=== PATIENT | male | born 1980 | race Two or more races ===

== ENCOUNTER 2020-01-11 21:23 | Emergency (ER) | payer MEDICAID ==
[~2020-01-11] VITALS: Ht 188 cm; Wt 97.0 kg
[2020-01-11] MEDS ORDERED: SODIUM CHLORIDE 0.9% 1,000 ML IV ONE (22:00)
[2020-01-11] MEDS ORDERED: ONDANSETRON HCL 4MG/2ML INJ IV STA (22:00)
[2020-01-11] MEDS ORDERED: KETOROLAC 30MG/ML VIAL IV ONE (22:15)
[2020-01-11 22:38] LABS: BASOPHILS % 0.4 % (0.0-2.0); EOSINOPHILS % 0.9 % (0.0-5.0); HEMOGLOBIN. 14.4 g/dL (14.0-18.0); MEAN CORPUSCULAR HEMOGLOBIN 29.5 pg (28.0-32.0); MEAN CORPUSCULAR VOLUME 86.2 fL (80.0-94.0); MEAN PLATELET VOLUME 7.2 fl (7.4-10.4); MONOCYTES % 8.4 % (2.0-8.0); NEUTROPHILS % 64.3 % (40.0-76.0); PLATELET 247 x1000/uL (130-400); RED BLOOD CELL COUNT 4.87 mill/uL (4.7-6.1); RED CELL DISTRIBUTION WIDTH 13.2 % (11.6-14.6)
[2020-01-11 22:39] LABS: CHLORIDE 104 mEq/L (98-107)
[2020-01-11 22:42] LABS: PROTHROMBIN TIME 10.8 sec (9.6-11.0)
[2020-01-11 23:23] LABS: CLARITY URINE CLOUDY (CLEAR); KETONES URINE TRACE (NEGATIVE); LEUKOCYTE ESTERASE URINE NEGATIVE (NEGATIVE); NITRITE URINE NEGATIVE (NEGATIVE); OCCULT BLOOD URINE 3+ (NEGATIVE); PH URINE 5.5 (4.5-8.0); PROTEIN URINE 1+ (NEGATIVE); SPECIFIC GRAVITY URINE 1.027 (1.005-1.030)
[2020-01-11 23:32] LABS: COLOR URINE YELLOW (YELLOW)
[2020-01-12 02:16] VITALS: BP 123/78
== END 2020-01-12 02:22 | disposition home or self-care (01) ==
LOC: ER 21:23
DX: N23 Unspecified renal colic (principal)
CPT/HCPCS: 36415; 74176; 80053; 81003; 83690; 85025; 85610; 96374; 99284; J1885; J7030; J2405